=== PATIENT | male | born 1960 | race Caucasian/White ===

== ENCOUNTER 2019-03-26 09:08 | Emergency (ER) | payer MEDICAID ==
[~2019-03-26] VITALS: Ht 193 cm; Wt 88.5 kg
--- NOTE | 2019-03-26 09:12 | NUR ---
[id number] FROM OUTSIDE 04/02, S/P GLF, LACERATION ON RT EYEBROW, MULTPLE CUTS ON KNEE. DENIES KO. TO ER BED 15, HOOKED TO MONITOR, CHANGED TO GOWN, AWAITING MD CRAMER.
--- NOTE | 2019-03-26 09:38 | NUR ---
DR ORELLANA AT BEDSIDE
--- NOTE | 2019-03-26 09:50 | NUR ---
DR ORELLANA AT BEDSIDE FOR SUTURING OR R EYEBROW LAC
[2019-03-26] MEDS ORDERED: LIDOCAINE 1%-EPI 1:100,000 50 ML VIAL IJ ONE (10:00)
[2019-03-26] MEDS ORDERED: LIDOCAINE 1%-EPI 1:100,000 20 ML VIAL ONE (10:00)
[2019-03-26] MEDS ORDERED: TDAP [DIPH/PERTUSSIS/TET] 0.5 ML VIAL IM ONE ×2 (10:00)
[2019-03-26 10:29] LABS: BASOPHILS # (AUTO) 0.1 /CMM (0.0-0.2); BASOPHILS % (AUTO) 0.7 % (0.0-2.0); EOSINOPHILS % (AUTO) 2.1 % (0.0-6.0); HEMATOCRIT 41 % (39-51); LYMPHOCYTES # (AUTO) 1.4 /CMM (0.8-4.8); LYMPHOCYTES % (AUTO) 18.1 % (20.0-44.0); MEAN CORPUSCULAR HGB CONC 34 g/dl (31.0-36.0); MEAN CORPUSCULAR VOLUME 94 fL (80-96); MONOCYTES # (AUTO) 0.7 /CMM (0.1-1.30); NEUTROPHILS # (AUTO) 5.3 /CMM (1.8-8.9); NEUTROPHILS % (AUTO) 70.1 % (43.0-81.0); PLATELET COUNT (AUTO) 316 /CMM (150-450); RED BLOOD CELL COUNT(AUTO) 4.41 MIL/uL (4.5-6.0); WHITE BLOOD COUNT (AUTO) 7.5 K/uL (4.3-11.0)
[2019-03-26 10:35] LABS: CALCIUM, SERUM 8.3 mg/dL (8.5-10.1); CARBON DIOXIDE 27 mmol/L (21-32); CHLORIDE 104 mmol/L (98-107); CREATININE 1.1 mg/dL (0.6-1.3); GLUCOSE 109 mg/dL (74-106); POTASSIUM 4.1 mmol/L (3.5-5.1); SODIUM SERUM 138 mmol/L (136-145); UREA NITROGEN, BLOOD 25 mg/dL (7-18)
[2019-03-26 10:37] LABS: ALCOHOL, BLOOD < 3 mg/dL (0-0)
--- NOTE | 2019-03-26 12:23 | NUR ---
PT PROVIDED W/ TAP CARD. REFUSED WALKER. AMBULATES W/ STEADY GAIT. D/C HOME IN STABLE CONDITION.
[2019-03-26 12:24] VITALS: BP 132/87
== END 2019-03-26 12:25 | disposition home or self-care (01) ==
LOC: ER 09:11
DX: S01.111A Laceration without foreign body of right eyelid and periocular area, initial encounter (principal); W18.39XA Other fall on same level, initial encounter; Y93.89 Activity, other specified; Y92.89 Other specified places as the place of occurrence of the external cause; Y99.8 Other external cause status
CPT/HCPCS: 12011; 36415; 70450; 80048; 80307; 85025; 90471; 90715; 99284; A6402; J3490 ×2; G0480